=== PATIENT | female | born 1980 | race Caucasian/White ===

== ENCOUNTER 2019-03-01 15:00 | Emergency (ER) | payer OTHER ==
[~2019-03-01] VITALS: Ht 172.7 cm; Wt 95.3 kg
[~2019-03-01 15:00] MED LIST: HYDROCODON-ACE1 EACH PO; IBUPROFEN 800800 MG PO; LISINOPRIL2.5 MG PO
[2019-03-01] MEDS ORDERED: VYVANSE20 MG PO (15:11)
[2019-03-01] MEDS ORDERED: LOSARTAN-HCTZ1 EAC3 PO (15:11)
[2019-03-01 16:12] VITALS: BP 135/85
== END 2019-03-01 16:13 | disposition home or self-care (01) ==
LOC: M.ERS 15:00
DX: T69.9XXA Effect of reduced temperature, unspecified, initial encounter (principal); X31.XXXA Exposure to excessive natural cold, initial encounter; V89.2XXA Person injured in unspecified motor-vehicle accident, traffic, initial encounter; Y93.89 Activity, other specified; Y92.89 Other specified places as the place of occurrence of the external cause; Y99.8 Other external cause status